=== PATIENT | female | born 1935 | race Caucasian/White ===

== ENCOUNTER → 2017-07-15 | Outpatient (POV) ==
[2015-03-18 09:36] VITALS: BMI 23.0
== END ==
LOC: OUTPT 00:01
PROVIDERS: ATTEND Otolaryngology
DX: H91.90 Unspecified hearing loss, unspecified ear (principal)
CPT/HCPCS: 92557

== ENCOUNTER 2019-07-12 14:11 | Outpatient (CLI) ==
[2015-03-18 09:36] VITALS: BMI 23.0
--- NOTE | 2019-07-13 08:57 | DI ---
EXAM: One-view pelvis HISTORY: Pain after fall COMPARISON: None. FINDINGS/IMPRESSION: Alignment: Anatomic. Bones: No displaced pelvic or evidence of proximal femoral fracture. Joint spaces: Preserved without significant degenerative change. Soft tissues: No acute abnormality. Atherosclerotic calcifications.
--- NOTE | 2019-07-13 09:10 | DI ---
EXAM: Two views of the sacrum/coccyx HISTORY: Pain after fall COMPARISON: None. FINDINGS/IMPRESSION: Alignment: Anatomic. Bones: No evidence of displaced pelvic or proximal femoral fracture. Bowel gas partially obscures th e sacrum. Joint spaces: Mild degenerative change of the SI joints and pubic symphysis. Mild degenerative palma e of the left hip.. Soft tissues: No acute abnormality. Atherosclerotic calcifications.. Moderate/advanced lower lumbar spondylosis. 3 mL retrolisthesis of L5 on S1.
== END 2019-07-12 14:12 | disposition home or self-care (01) ==
LOC: RAD 14:11
PROVIDERS: ATTEND Internal Medicine
DX: S39.92XA Unspecified injury of lower back, initial encounter (principal); W19.XXXA Unspecified fall, initial encounter

== ENCOUNTER 2020-05-01 10:38 | Inpatient (IN) ==
[2020-05-01] MEDS ORDERED: NITROSTAT SL PRN (10:58)
[2020-05-01] MEDS ORDERED: TYLENOL PO PRN (10:58)
[2020-05-01] MEDS ORDERED: ATROPINE SULFATE PFS IVP PRN (10:58)
[2020-05-01 11:25] VITALS: BMI 22.0
[2020-05-01 11:30] LABS: HEMATOCRIT 35.8 % (37.0-47.0)
[2020-05-01] MEDS: ATIVAN PO PRN ×2 (12:49→17:56)
[2020-05-01] MEDS: SODIUM CHLORIDE 1,000 ML IV SCH (14:23)
--- NOTE | 2020-05-01 15:29 | CT ---
EXAM:CT head with and without contrast HISTORY: Change in mental status COMPARISON: CT head 01/19/2020 with multiple priors including MRI 03/05/2011 TECHNIQUE: Serial axial images of the brain were obtained from the skull base to the vertex with and without IV contrast. Contrast enhanced images were performed after 75 mL is of Omnipaque 300 IV con trast was administered. FINDINGS: The ventricles, cisterns and sulci demonstrate stable generalized volume loss. There is s cattered low attenuation throughout the periventricular white matter.The khan-white matter junction i s maintained. No midline shift or mass is identified. There is no intra or extra axial fluid collec tion. The paranasal sinuses and mastoid air cells are clear. The Osseous calvarium is intact. Ther e is no contrast enhancing lesion. IMPRESSION: No intracranial abnormality or contrast enhancing lesion. Moderate generalized volume loss and microangiopathy.
--- NOTE | 2020-05-01 15:41 | CT ---
EXAM: CT chest without and with IV contrast HISTORY: Cough COMPARISON: None TECHNIQUE: Multiple axial images of the chest were obtained without and with IV contrast. Images wer e reformatted in the sagittal and coronal planes. FINDINGS: Heterogeneous thyroid gland with left greater than right hypodense nodules. Normal appearance of the thoracic inlet. Normal diameter thoracic aorta. Normal heart size. Trace pericardial effusion. Ao rtic and coronary atherosclerotic calcifications. No enlarged axillary lymph nodes. Enlarged 1.1 cm precarinal lymph node and 1.9 cm right hilar lymph nodes. Patent central airways. Large perihilar right upper/lower lobe perifissural mass measures 3.9 x 4.9 x 4.4 cm (AP by transverse by craniocauda l). Numerous bilateral pulmonary nodules measure up to 1.9 cm in the medial right middle lobe and ap proximately 0.9 cm in the left lower lobe base. No pneumothorax or pleural effusion. No acute findings within the visualized upper abdomen. No suspicious lytic/blastic lesion. No acute o sseous abnormality. IMPRESSION: 1. Large perihilar right upper/lower lobe mass consistent with malignancy. 2. Numerous bilateral pulmonary metastases. 3. Mediastinal and hilar adenopathy representing lymph node metastases. 4. Heterogeneous thyroid gland with left greater than right. Hypodense nodules.
--- NOTE | 2020-05-01 15:41 | CT ---
EXAM: CT abdomen with and without contrast. CT pelvis with and without contrast. HISTORY: Mental status change. Cough. Abdominal pain. COMPARISON: None available. TECHNIQUE: Multiple axial images of the abdomen and pelvis were obtained prior to and following intr avenous administration of 75 mL of Omnipaque 350, low osmolar. Images reformatted in the sagittal an d coronal plane. FINDINGS: Nodules in the lung bases. Note the largest measuring up to 1.9 cm in the right middle lo be on axial image 1 which is incompletely imaged. Refer to same day chest CT report for details. Sm all pericardial effusion noted. Degenerative changes present in the spine. Old appearing superior endplate compression deformity of L3 noted. No cecelia osseous lesion is identified. Leftward angulation of the coccyx may be due to ag e indeterminate injury. Gallbladder is absent. A 0.9 cm low density inferior posterior right hepatic lobe lesion on postcont rast coronal image 42 is present which measures fluid density. Smaller hepatic lesion on coronal ericka ge 53 is too small to characterize. The spleen and adrenal glands are normal. Suggestion of cystic lesion in the pancreatic tail measuring 1.4 x 0.9 x 1.3 cm on postcontrast axial image 21 and coronal image 28. Pancreas is otherwise normal. No peripancreatic inflammation identified. There is symmetric renal enhancement without hydronephrosis. There is no evidence for bowel obstruction. Diverticulosis noted. Appendix not seen. There are low density masses with rim enhancement in the left lateral abdominal mesentery measuring 1 .6 x 1 cm on postcontrast axial image 38 and along the lateral peritoneal surface measuring 1.3 x 1.1 cm on axial image 27. Tiny nodule in the right lateral mesentery measures 0.5 cm on postcontrast ax ial image 35. Uterus demonstrates normal contour. Bladder is normal. Phleboliths present in the pelvis. Atherosc lerotic calcifications present. No free fluid or free air identified IMPRESSION: 1. Rim enhancing low density masses within the peritoneum are suspicious for metastases. 2. Indeterminate low-density pancreatic tail mass. Consider MRI. 3. Small hepatic cyst. Smaller low density hepatic lesion is too small to characterize. 4. Pulmonary nodules are incompletely imaged. Refer to same day chest CT report for details. 5. Small pericardial effusion.
[2020-05-01] MEDS: PLETAL PO SCH (20:29)
[2020-05-01] MEDS: KEPPRA PO SCH (20:29)
[2020-05-01] MEDS: REMERON PO SCH (20:30)
[2020-05-01] MEDS: ZOCOR PO SCH (20:30)
[2020-05-01] MEDS: DIVALPROEX 250 MG PO SCH (20:30)
[2020-05-01] MEDS: RISPERDAL PO SCH (20:30)
[2020-05-01] MEDS: VISTARIL INJ IM PRN (21:04)
[2020-05-02 06:09] LABS: HEMATOCRIT 33.1 % (37.0-47.0)
[2020-05-02] MEDS ORDERED: HALDOL IM PRN (08:21)
[2020-05-02] MEDS: ASPIRIN EC PO SCH (08:59)
[2020-05-02] MEDS: KEPPRA PO SCH ×3 (08:59→21:12)
[2020-05-02] MEDS: PLETAL PO SCH ×3 (09:00→21:12)
[2020-05-02] MEDS: PLAVIX PO SCH (09:00)
[2020-05-02] MEDS: RISPERDAL PO SCH ×3 (09:00→21:13)
[2020-05-02] MEDS: BYSTOLIC PO SCH (09:00)
[2020-05-02] MEDS: DIVALPROEX 250 MG PO SCH ×3 (09:02→21:10)
[2020-05-02] MEDS: SODIUM CHLORIDE 1,000 ML IV SCH (09:31)
--- NOTE | 2020-05-02 09:38 | PCM.PROG ---
Attending Provider: ATTENDING PROVIDER: Dr. MICHEL ALVARADO This patient is seen with Tomasa Tavarez, Nurse Practitioner. DATE OF SERVICE: 05/02/20 SUBJECTIVE: This 84 year old /WHITE F was hospitalized 05/01/20. Resting comfortably. The patient had a very active night, was combative at times. She is normally pleasantly confused. The family is not present this a.m. to discuss test results. REVIEW OF SYSTEMS: CONSTITUTIONAL: Weakness. No night sweats. No fatigue, malaise, lethargy. No fever or chills. HEENT: Eyes: No visual changes. No eye pain. No eye discharge. ENT: No runny nose. No epistaxis. No sinus pain. No odynophagia. No congestion. RESPIRATORY: Cough. No congestion. No hemoptysis. No shortness of breath. CARDIOVASCULAR: No angina symptoms. No CHF symptoms. No atypical chest pain for CAD. No palpitations. No orthopnea.. GASTROINTESTINAL: No abdominal pain. No nausea or vomiting. No diarrhea or constipation. No hematemesis. No hematochezia. GENITOURINARY: No urgency. No frequency. No dysuria. No hematuria. No obstructive symptoms. No discharge. No pain. No significant abnormal bleeding. MUSCULOSKELETAL: No musculoskeletal pain; no joint swelling. NEUROLOGICAL: Confusion, oriented to person only. No headache. No neck pain. No syncope. No seizures. No dizziness. PSYCHIATRIC: Not anxious. No depression. No suicidal thoughts. No homicidal th oughts. SKIN: No rash. No lesions. No wounds. ENDOCRINE: No unexplained weight loss. No weight gain. HEMATOLOGIC/LYMPHATIC: No anemia. No purpura. No petechiae. No prolonged or excessive bleeding. No palpable lymph nodes. PHYSICAL EXAMINATION: GENERAL: The patient is oriented to person only, lying/sitting in bed in no distress. VITAL SIGNS: Temperature 98.7 F, Pulse 85, Respiratory Rate 18, BP 110/63, Pulse Ox 93% HEENT: Head normocephalic, atraumatic. Eyes: Extraocular muscles are intact. Pupils are equal, round and reactive to light and accommodation. Ears: No lesions. Nose appeared normal. Throat: No exudate or erythema. NECK: Supple. No JVD, no carotid bruit. No lymphadenopathy or thyromegaly. LUNGS: Diminished breath sounds. Clear to auscultation. Percussion note normal. Chest symmetrical. HEART: S1, S2, no S3. No murmurs. No cyanosis or clubbing. No ascites. Pulses: Dorsalis pedis and posterior tibial pulses +1 to +2 both sides. ABDOMEN: Soft. Non-tender. Bowel sounds active. No CVA tenderness. No mass felt. EXTREMITIES: No edema. Full range of motion of all extremities, equal. NEUROLOGIC: No focal deficit. Cranial nerves II through XII are grossly intact. No headache, no double vision or headache. SKIN: Not dry. Intact. Turgor-normal. LYMPHATIC: No palpable lymph nodes/no lymphedema. MUSCULOSKELETAL: Generalized weakness. Normal joints with no swelling. Muscle tone is normal. LAB REVIEW: 05/02/20 06:02 05/02/20 06:02 05/02/20 06:02: Sodium 133.8 L, Potassium 3.61, Chloride 100.7, Carbon Dioxide 2 7.8, Anion Gap 8.91, BUN 7.2, Creatinine 0.48 L, Estimated GFR (MDRD) 123.00, BUN/Creatinine Ratio 15.00, Glucose 106.7 H, Calcium 9.12, Total Bilirubin 0.48, AST 31.0, ALT 15.0, Alkaline Phosphatase 101.5, Total Protein 6.23 L, Albumin 3.38 L, Globulin 2.85, Albumin/Globulin Ratio 1.18 05/02/20 06:02: WBC 7.39, RBC 3.83 L, Hgb 11.1 L, Hct 33.1 L, MCV 86.4, MCH 29.0, MCHC 33.5, RDW Coeff of Cheryl 13.2, Plt Count 225, Immature Gran % (Auto) 0.5, Neut % (Auto) 74.4, Lymph % (Auto) 11.2, [place] % (Auto) 13.3 H, Eos % (Auto) 0.3, Baso % (Auto) 0.3, Neut # (Auto) 5.5, Lymph # (Auto) 0.8, [place] # (Auto) 1.0, Eos # (Auto) 0.0, Baso # (Auto) 0.0, Immature Gran # (Auto) 0.0 05/01/20 11:48: Urine Color Yellow, Urine Clarity Clear, Urine pH 7.0, Ur Specific Hammond 1.015, Urine Protein Negative, Urine Glucose (UA) Negative, Urine Ketones Negative, Urine Blood Negative, Urine Nitrite Negative, Urine Bilirubin Negative, Urine Urobilinogen 0.2, Ur Leukocyte Esterase Negative 05/01/20 11:25: Valproic Acid 27.16 L 05/01/20 11:25: Vitamin B12 984 H 05/01/20 11:25: Sodium 135.5, Potassium 3.91, Chloride 101.9, Carbon Dioxide 27.3, Anion Gap 10.21, BUN 7.3, Creatinine 0.49 L, Estimated GFR (MDRD) 120.00, BUN/Creatinine Ratio 14.89, Glucose 105.1, Calcium 9.22, Total Bilirubin 0.39, AST 37.1 H, ALT 14.5, Alkaline Phosphatase 109.3, Total Protein 6.67, Albumin 3.66, Globulin 3.01, Albumin/Globulin Ratio 1.21 05/01/20 11:25: WBC 7.34, RBC 4.10 L, Hgb 11.9 L, Hct 35.8 L, MCV 87.3, MCH 29.0, MCHC 33.2, RDW Coeff of Cheryl 13.2, Plt Count 237, Immature Gran % (Auto) 0.7, Neut % (Auto) 73.8, Lymph % (Auto) 14.3, [place] % (Auto) 10.4 H, Eos % (Auto) 0.5, Baso % (Auto) 0.3, Neut # (Auto) 5.4, Lymph # (Auto) 1.1, [place] # (Auto) 0.8, Eos # (Auto) 0.0, Baso # (Auto) 0.0, Immature Gran # (Auto) 0.1 ASSESSMENT: Please see below. 1. Generalized weakness. 2. Dementia with behavioral disturbances. 3. 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 PLAN: 1. I will discuss with family when they are present, our plan of action. Considering her advanced age and advanced dementia, her prognosis is poor. These were incidental findings, she has had no signs or symptoms. 2. Haldol 0.5 mg IM q.h.s. p.r.n. 3. Close monitoring. 4. Fall precautions. Plan and coordination of the patient's care discussed in the presence of Type Rolling Machine Operator and nurse. CONDITION: Stable SCRIBED BY: CIERA WARNER Palletizer scribed while in presence of service performed by Dr. Alvarado/Tomasa Tavarez APRN on 05/02/20 ([id number])
--- NOTE | 2020-05-02 11:23 | HP ---
DATE OF SERVICE: 05/01/20 HISTORY OF PRESENT ILLNESS: 84-year-old White/ female with complaint of feeling more tired and weak, not eating as much. She has lost weight. She is coughing. She has had diarrhea off and on. PAST MEDICAL HISTORY: Dementia - memory loss Chronic cough CAD with stent COPD PAD Hypertension Dyslipidemia History of UTI's Hyperglycemia Osteoarthritis PAST SURGICAL HISTORY: Stent Gallbladder Bladder REVIEW OF SYSTEMS: CONSTITUTIONAL: Fatigue. No fever. HEENT: No sinus drainage, no sore throat. RESPIRATORY: Cough. CARDIOVASCULAR: No atypical chest pain for coronary artery disease. No angina, CHF symptoms, palpitations or shortness of breath. GASTROINTESTINAL: Diarrhea 3-4 times a day. No melena or abdominal pain. No GERD. GENITOURINARY: No hematuria, no polyuria. DIRECTOR PROCESS ENGINEERING: Unsteady gait. No blackout, no dizziness, no headache, no double vision. MUSCULOSKELETAL: Osteoarthritis pain. ENDOCRINE: No weight loss, no weight gain. SKIN: Not dry, no rash. PSYCHIATRIC: Not anxious, no depression, no suicidal thoughts, no homicidal thoughts. SOCIAL HISTORY: Nonsmoker. . She has six children. No alcohol use. FAMILY HISTORY: Father . Mother . One brother. No sisters. MEDICATIONS: Bystolic 5 mg one daily Keppra 750 mg two a.m., two h.s. Seroquel 50 mg one at h.s. Plavix 75 mg one daily Cilostazol 100 mg one b.i.d. Simvastatin 40 mg one daily Ativan 1 mg 1-1.5 daily Memantine ER 7 mg 2 daily (Dr. Sherman) Cilostazol 100 mg one tab p.o. b.i.d. Imodium b.i.d. Tylenol b.i.d. Vitamin D 50,000 units one weekly Remeron 7.5 mg one h.s. Risperidone 1 mg one b.i.d. Depakote 125 mg two b.i.d. Melatonin 3 mg one h.s. ALLERGIES: NKDA PHYSICAL EXAMINATION: V/S: Pulse 76, BP 118/68, Temperature 97.7, 02 sat 98%. Weight 118 pounds, 4 ozs, Height 5'3". BMI 20.9. GENERAL APPEARANCE: Oriented to person only; confused. HEENT: Normal. NECK: No JVP, no bruits. RESPIRATORY: Lungs are clear. Decreased breath sounds. CARDIOVASCULAR: S1, S2, no S3, no murmur. Positive for clubbing. No cyanosis. No ascites. GI/ABDOMEN: No tenderness. Bowel sounds are active. EXTREMITIES: No edema, pulses +1, equal. DIRECTOR PROCESS ENGINEERING: Deep tendon reflexes, sensory, motor and gait all normal. RECTAL/PELVIC: Colonoscopy - Dr. Callahan 01/15. Pelvic: Advised yearly. Refused mammogram. LAB REVIEW: B12 [id number], Valproic Acid 27.16, UA normal. Sodium 135, potassium 3.9, BUN 7.3, creatinine 0.4. White count 7.3, hemoglobin 11.9, hematocrit 35.8, platelets 237. ASSESSMENT: 1. Change in mental status. 2. Generalized weakness. 3. Dementia with behavioral disturbances. 4. Chronic cough. 5. Memory loss (Dr. Sherman). 6. Seizure disorder (Dr. Sherman). 7. CAD with stent. 8. Hypertension. 9. Dyslipidemia. 10. History of UTI. 11. Status post fall- recurrent. 12. Hyperglycemia. 13. Left cervical radiculopathy. 14. Osteoarthritis. 15. Peripheral arterial disease, Dr. Umaña. 16. COPD - appointment 06/06/20. PLAN: 1. Routine telemetry orders - no cardiac markers. 2. CBC, CMP now and daily. 3. U/A with culture. 4. CT scan of brain, chest, abdomen and pelvis with and without contrast. 5. Regular diet. 6. Continue home medications. 7. Keppra level. 8. Depakote level. 9. B12 level. 10. NS @ 50 cc/hr IV. 11. Fall precautions - high risk. Close to nurse's desk. 12. Ativan 0.5 mg b.i.d. p.r.n. p.o. TIME SPENT: More than 70 minutes. MTDD
--- NOTE | 2020-05-02 14:06 | PN ---
DATE OF SERVICE: 05/01/20 SUBJECTIVE: The patient was seen and examined with the nurse practitioner in the office. The patient is going to be hospitalized with dementia and planning overall health status with possibility of dehydration. Also has a lot of nonspecific complaints like chest pain, PND type of feelings the patient has. The daughter is in the room. I will admit the patient and work her up with routine tests. TIME SPENT: More than 30 minutes. Plan and coordination of the patient's care discussed in the presence of nurse. LISA
--- NOTE | 2020-05-02 14:12 | PN ---
DATE OF SERVICE: 05/02/20 SUBJECTIVE: The patient was seen and examined with the nurse practitioner. The patient has the possibility of metastatic lung cancer, lesion in the pancreas is noted. The patient has Alzheimer's with dementia. She is up and about but confused. I talked with the family about future plan. TIME SPENT: More than 30 minutes. Plan and coordination of the patient's care discussed in the presence of nurse. LISA
[2020-05-02] MEDS: ZOCOR PO SCH ×2 (19:30→21:14)
[2020-05-02] MEDS: REMERON PO SCH ×2 (19:31→21:13)
[2020-05-02] MEDS: ATIVAN PO PRN (19:32)
[2020-05-03 05:37] LABS: HEMATOCRIT 31.6 % (37.0-47.0)
[2020-05-03] MEDS: RISPERDAL PO SCH ×3 (08:30→20:07)
[2020-05-03] MEDS: PLAVIX PO SCH (08:31)
[2020-05-03] MEDS: DIVALPROEX 250 MG PO SCH ×3 (08:31→20:05)
[2020-05-03] MEDS: ASPIRIN EC PO SCH (08:31)
[2020-05-03] MEDS: HALDOL PO SCH ×3 (08:31→20:05)
[2020-05-03] MEDS: PLETAL PO SCH ×3 (08:31→20:06)
[2020-05-03] MEDS: KEPPRA PO SCH ×3 (08:31→20:05)
[2020-05-03] MEDS: BYSTOLIC PO SCH (08:31)
--- NOTE | 2020-05-03 09:09 | PN ---
DATE OF SERVICE: 05/03/20 SUBJECTIVE: The patient was seen and examined this morning with nurse practitioner. The patient's condition is stable. She has old metastatic lesion and possibility of malignancy. The family wants her to be off Ativan. Will do that and put her on Haldol which has worked p.o. 0.5 twice a day. Condition is otherwise stable. TIME SPENT: More than 30 minutes. Plan and coordination of the patient's care discussed in the presence of nurse. LISA
--- NOTE | 2020-05-03 11:54 | PN ---
DATE OF SERVICE: 05/03/20 SUBJECTIVE: 84-year-old female who was hospitalized 05/01/20. She is currently resting comfortably in bed. She again had a very active night and was combative at times. Haldol was given which the patient tolerated very well and was able to rest. She is normally pleasantly confused. There is no family present in the room this morning however previous test results with concern for cancer with metastasis was discussed in great detail yesterday with the family. The daughter Kim is concerned that Ativan is contributing to Ms. Alonzo's confusion therefore we will stop Ativan today. The nursing staff reports that the telemetry also makes the patient very agitated therefore we will discontinue her telemetry today. We will begin Haldol 0.5 p.o. b.i.d. The family is currently trying to decide whether they will take the patient back home or if they would prefer her to try [facility] placement. We will continue to monitor the patient closely due to confusion and increased fall risk. REVIEW OF SYSTEMS: CONSTITUTIONAL: Weakness. No night sweats. No fatigue, malaise, lethargy. No fever or chills. HEENT: Eyes: No visual changes. No eye pain. No eye discharge. ENT: No runny nose. No epistaxis. No sinus pain. No sore throat. No odynophagia. No congestion. RESPIRATORY: No cough, no congestion. No hemoptysis. No shortness of breath. CARDIOVASCULAR: No angina symptoms. No CHF symptoms. No atypical chest pain for CAD. No palpitations. No PND. No orthopnea. GASTROINTESTINAL: No abdominal pain. No nausea or vomiting. No diarrhea or constipation. No hematemesis. No hematochezia. GENITOURINARY: No urgency. No frequency. No dysuria. No hematuria. No obstructive symptoms. No discharge. No pain. No significant abnormal bleeding. MUSCULOSKELETAL: No musculoskeletal pain; no joint swelling. NEUROLOGICAL: Confusion. Oriented to person only. No headache. No neck pain. No syncope. No seizures. No dizziness. PSYCHIATRIC: Not anxious. No depression. No suicidal thoughts. No homicidal thoughts. SKIN: No rash. No lesions. No wounds. ENDOCRINE: No unexplained weight loss. No weight gain. HEMATOLOGIC/LYMPHATIC: No anemia. No purpura. No petechiae. No prolonged or excessive bleeding. No palpable lymph nodes. PHYSICAL EXAMINATION: GENERAL: The patient is oriented to person only. VITAL SIGNS: Temperature 98.4, pulse 74, BP 134/74, respiratory rate 16, 02 saturation 96% on room air. HEENT: Head normocephalic, atraumatic. Eyes: Extraocular muscles are intact. Pupils are equal, round and reactive to light and accommodation. Ears: No lesions. Nose appeared normal. Throat: No exudate or erythema. NECK: Supple. No JVD, no carotid bruit. No lymphadenopathy or thyromegaly. LUNGS: Diminished breath sounds. Clear to auscultation. Percussion note normal. Chest symmetrical. HEART: S1, S2, no S3. No murmurs. No cyanosis or clubbing. No ascites. Pulses: Dorsalis pedis and posterior tibial pulses +1 to +2 bilaterally. ABDOMEN: Soft. Nontender. Bowel sounds active. No CVA tenderness. No mass felt. EXTREMITIES: No edema. Full range of motion of all extremities, equal. NEUROLOGIC: No focal deficit. Cranial nerves II through XII are grossly intact. No headache, no double vision or headache. SKIN: Not dry. Intact. Turgor - normal. LYMPHATIC: No palpable lymph nodes/no lymphedema. MUSCULOSKELETAL: Normal joints with no swelling. Muscle tone is normal. ASSESSMENT: 1. Generalized weakness. 2. Dementia with behavioral disturbances. 3. 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 PLAN: 1. Test results were discussed with family in great depth. The family is considering different plans of action. Considering her advanced age and advanced dementia, her prognosis is poor. 2. Stop Ativan. 3. Haldol 0.5 mg p.o. b.i.d. 4. Okay to d/c telemetry. 5. Stop fluids as the patient has had good oral intake. TIME SPENT: More than 30 minutes. Plan and coordination of the patient's care discussed in the presence of nurse. LISA
[2020-05-03] MEDS: VISTARIL INJ IM PRN (18:00)
[2020-05-03] MEDS: ZOCOR PO SCH ×2 (19:43→20:08)
[2020-05-03] MEDS: REMERON PO SCH ×2 (19:44→20:07)
[2020-05-04 06:19] VITALS: BP 105/64; TEMP 97.8
[2020-05-04] MEDS: BYSTOLIC PO SCH (08:16)
[2020-05-04] MEDS: ASPIRIN EC PO SCH (08:16)
[2020-05-04] MEDS: DIVALPROEX 250 MG PO SCH (08:17)
[2020-05-04] MEDS: PLETAL PO SCH (08:17)
[2020-05-04] MEDS: RISPERDAL PO SCH (08:17)
[2020-05-04] MEDS: PLAVIX PO SCH (08:17)
[2020-05-04] MEDS: HALDOL PO SCH (08:17)
[2020-05-04] MEDS: KEPPRA PO SCH (08:17)
--- NOTE | 2020-05-04 08:30 | PCM.PROG ---
Attending Provider: ATTENDING PROVIDER: Dr. MICHEL NORTON This patient is seen with Tomasa Tavarez, Nurse Practitioner. DATE OF SERVICE: 05/04/20 SUBJECTIVE: This 84 year old /WHITE F was hospitalized 05/01/20. The patient is resting comfortably. Oral Haldol has helped behavior. Stable for discharge today. The family is unsure of plan whether she will go to custodial or back home. They have an appointment with Dr. Thomas on 05/09. REVIEW OF SYSTEMS: CONSTITUTIONAL: Confusion. Weakness. No night sweats. No fatigue, malaise, lethargy. No fever or chills. HEENT: Eyes: No visual changes. No eye pain. No eye discharge. ENT: No runny nose. No epistaxis. No sinus pain. No odynophagia. No congestion. RESPIRATORY: Cough, no congestion. No hemoptysis. No shortness of breath. CARDIOVASCULAR: No angina symptoms. No CHF symptoms. No atypical chest pain for CAD. No palpitations. No orthopnea.. GASTROINTESTINAL: No abdominal pain. No nausea or vomiting. No diarrhea or constipation. No hematemesis. No hematochezia. GENITOURINARY: No urgency. No frequency. No dysuria. No hematuria. No obstructive symptoms. No discharge. No pain. No significant abnormal bleeding. MUSCULOSKELETAL: No musculoskeletal pain; no joint swelling. NEUROLOGICAL: Awake, confused. No headache. No neck pain. No syncope. No seizures. No dizziness. PSYCHIATRIC: Not anxious. No depression. No suicidal thoughts. No homicidal thoughts. SKIN: No rash. No lesions. No wounds. ENDOCRINE: No unexplained weight loss. No weight gain. HEMATOLOGIC/LYMPHATIC: No anemia. No purpura. No petechiae. No prolonged or excessive bleeding. No palpable lymph nodes. PHYSICAL EXAMINATION: GENERAL: The patient is awake, confused, lying/sitting in bed in no distress. VITAL SIGNS: Temperature 97.8 F, Pulse 74, Respiratory Rate 16, BP 105/64, Pulse Ox 95% HEENT: Head normocephalic, atraumatic. Eyes: Extraocular muscles are intact. Pupils are equal, round and reactive to light and accommodation. Ears: No lesions. Nose appeared normal. Throat: No exudate or erythema. NECK: Supple. No JVD, no carotid bruit. No lymphadenopathy or thyromegaly. LUNGS: Diminished breath sounds. Clear to auscultation. Percussion note normal. Chest symmetrical. HEART: S1, S2, no S3. No murmurs. No cyanosis or clubbing. No ascites. Pulses: Dorsalis pedis and posterior tibial pulses +1 to +2 both sides. ABDOMEN: Soft. Non-tender. Bowel sounds active. No CVA tenderness. No mass felt. EXTREMITIES: No edema. Full range of motion of all extremities, equal. NEUROLOGIC: No focal deficit. Cranial nerves II through XII are grossly intact. No headache, no double vision or headache. SKIN: Not dry. Intact. Turgor-normal. LYMPHATIC: No palpable lymph nodes/no lymphedema. MUSCULOSKELETAL: Normal joints with no swelling. Muscle tone is normal. LAB REVIEW: 05/04/20 05:30 05/04/20 05:30 05/04/20 05:30: Sodium 133.8 L, Potassium 3.62, Chloride 100.7, Carbon Dioxide 27.5, Anion Gap 9.22, BUN 10.3, Creatinine 0.50 L, Estimated GFR (MDRD) 118.00, BUN/Creatinine Ratio 20.60, Glucose 112.6 H, Calcium 8.85, Total Bilirubin 0.38, AST 33.5, ALT 15.9, Alkaline Phosphatase 95.2, Total Protein 5.81 L, Albumin 3.15 L, Globulin 2.66, Albumin/Globulin Ratio 1.18 05/04/20 05:30: WBC 7.74, RBC 3.70 L, Hgb 10.6 L, Hct 32.0 L, MCV 86.5, MCH 28.6, MCHC 33.1, RDW Coeff of Cheryl 13.4, Plt Count 231, Immature Gran % (Auto) 0.5, Neut % (Auto) 72.2, Lymph % (Auto) 12.8, [place] % (Auto) 13.4 H, Eos % (Auto) 0.8, Baso % (Auto) 0.3, Neut # (Auto) 5.6, Lymph # (Auto) 1.0, [place] # (Auto) 1.0, Eos # (Auto) 0.1, Baso # (Auto) 0.0, Immature Gran # (Auto) 0.0 05/01/20 11:25: Levetiracetam 64.0 H ASSESSMENT: Please see below. 1. Generalized weakness. 2. Dementia with behavioral disturbances. 3. 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 PLAN: 1. Anticipate discharge, will discuss with family to discharge home or custodial. 2. Appointment with Dr. Thomas on 05/09/20. 3. At this point her prognosis is poor given her age and newly diagnosed lung lesions. She would most likely benefit from palliatve care. Plan and coordination of the patient's care discussed in the presence of Tar Chaser and nurse. CONDITION: stable SCRIBED BY: CIERA WARNER [employer] scribed while in presence of service performed by Dr. Norton/Tomasa Tavarez APRN on 05/04/20 ([id number])
[2020-05-04] MEDS: SODIUM CHLORIDE 1,000 ML IV SCH (10:37)
--- NOTE | 2020-05-04 10:53 | CM.DICTOOL ---
ADMISSION: 05/01/20 10:38 DISCHARGE: MAY 04, 2020 DATE OF SERVICE: 05/04/20 FINAL DIAGNOSIS: GENERALIZED WEAKNESS DEMENTIA WITH BEHAVIORAL DISTURBANCES RT LUNG MASS PER CT CONSISTENT WITH MALIGNANCY WITH BILATERAL METASTASIS ALONG LYMPH NODE AND PANCREATIC METASTASIS HX: DEMENTIA WITH BEHAVIORAL DISTURBANCES CHRONIC COUGH MEMORY LOSS SEIZURE DISORDER CAD WITH STENT HTN DYSLIPIDEMIA UTI FALLS - REOCCURANT HYPERGLYCEMIA L CERVICAL RADICULOPATHY OA PAD COPD- DR NINO F/U 06/06/2020 LAST VITALS Temp Pulse Resp BP Pulse Ox 97.8 F 74 19 105/64 95 05/04/20 06:00 05/04/20 06:00 05/04/20 08:00 05/04/20 06:00 05/04/20 06:00 TAKE THESE MEDICATIONS AT HOME Cilostazol (Pletal) 100 mg PO BID [facility] Last Admin: 05/04/20 08:17 Dose: 100 mg Documented by: Clopidogrel Bisulfate (Plavix) 75 mg PO DAILY [facility] Last Admin: 05/04/20 08:17 Dose: 75 mg Documented by: Ergocalciferol (Drisdol) 50,000 unit PO WEEKLY [facility] Haloperidol (Haldol) 0.5 mg PO BID [facility] -------- ( NEW) Last Admin: 05/04/20 08:17 Dose: 0.5 mg Documented by: Levetiracetam (Keppra) 1,500 mg PO BID [facility] Last Admin: 05/04/20 08:17 Dose: 1,500 mg Documented by: Mirtazapine (Remeron) 7.5 mg PO BEDTIME [facility] Last Admin: 05/03/20 20:07 Dose: Not Given Documented by: Nebivolol (Bystolic) 5 mg PO DAILY [facility] Last Admin: 05/04/20 08:16 Dose: 5 mg Documented by: Non-Formulary Medication (Divalproex [Depakote Sprinkles]) 250 mg PO Q12HR [facility] Last Admin: 05/04/20 08:17 Dose: 250 mg Documented by: Non-Formulary Medication (Melatonin) 3 mg PO BEDTIME [facility] Last Admin: 05/03/20 20:06 Dose: Not Given Documented by: Risperidone (Risperdal) 1 mg PO BID [facility] Last Admin: 05/04/20 08:17 Dose: 1 mg Documented by: Simvastatin (Zocor) 40 mg PO BEDTIME [facility] Last Admin: 05/03/20 20:08 Dose: Not Given Documented by: ALLERGIES No Known Allergies Allergy (Verified 01/19/20 19:27) DISCONTINUED MEDICATIONS NONE NEW PRESCRIPTIONS: HALDOL 0.5 MG PO BID SMOKING: NON- APPLICABLE DISEASE SPECIFIC EDUCATION: DEMENTIA WITH DISTURBANCES SEIZURES COVID LAB REVIEW: 05/04/20 05:30 05/04/20 05:30 05/04/20 05:30: Sodium 133.8 L, Potassium 3.62, Chloride 100.7, Carbon Dioxide 27.5, Anion Gap 9.22, BUN 10.3, Creatinine 0.50 L, Estimated GFR (MDRD) 118.00, BUN/Creatinine Ratio 20.60, Glucose 112.6 H, Calcium 8.85, Total Bilirubin 0.38, AST 33.5, ALT 15.9, Alkaline Phosphatase 95.2, Total Protein 5.81 L, Albumin 3.15 L, Globulin 2.66, Albumin/Globulin Ratio 1.18 05/04/20 05:30: WBC 7.74, RBC 3.70 L, Hgb 10.6 L, Hct 32.0 L, MCV 86.5, MCH 28.6, MCHC 33.1, RDW Coeff of Cheryl 13.4, Plt Count 231, Immature Gran % (Auto) 0.5, Neut % (Auto) 72.2, Lymph % (Auto) 12.8, [place] % (Auto) 13.4 H, Eos % (Auto) 0.8, Baso % (Auto) 0.3, Neut # (Auto) 5.6, Lymph # (Auto) 1.0, [place] # (Auto) 1.0, Eos # (Auto) 0.1, Baso # (Auto) 0.0, Immature Gran # (Auto) 0.0 05/01/20 11:25: Levetiracetam 64.0 H PLAN: DISCHARGE TO [facility] TODAY, May ACTIVITY : UP TOLERATED WITH ASSIST 24 HOURS SUPERVISION, ELOPEMENT RISK, FALL RISK PT AND OT EVAL AND TREAT DIET: REGULAR MD FOLLOW UP: DR ALVARADO/CLYDE ROJAS APRN/DIVINA DOYLE APRN WILL SEE ON ROUNDS DR NINO, [facility], [address] [place] [address] ON SATURDAY MAY 09, 2020 @ 115 PM ( IS NOT AT [facility] LABS TO BE TAKEN TO [facility]: CBC AND CMP ON Friday05/08/2020 THEN EVERY 3 MONTHS LIPIDS, TSH, FREE T4 AND A1C EVERY 6 MONTHS CODE STATUS: DO NOT RESUSCITATE MRS GROVES IS ALERT AND ORIENTED TO SELF ONLY. REQUIRES 24 HOUR SUPERVISION DUE TO CONFUSION. IS UP AND AMBULATING WITH ASSISTANCE.GAIT IS FAIR AND LENDS FORWARD, UNABLE TO COMPREHEND USE OF A ASSISTIVE DEVICE. NO FURTHER COMBATIVE EPISODES. GETS AGITATED WITH THINGS LIKE TELEMETRY AND IVS SO HAD TO DISCONTINUE. FEDS SELF WITH SET UP, CUES AT TIMES. SHE VERBALIZES DIFFICULTY USING HER RT HAND SHE IS EATING. NUTRITIONAL INTAKE FAIR - GOOD AND FLUID INTAKE GOOD. SKIN WARM AND DRY AND INTACT. WEARS DEPENDS DUE TO DRIBBLING, HOWEVER, GETS UP TO BATHROOM. CONTINENT OF BOWELS WITH LAST BOWEL MOVEMENT 05/03/2020. DISCHARGING TO [facility] PER FAMILIES DESIRES, MAY TRY TO TAKE HOME LATER. FAMILY VERBALIZES THE RESTRICTIONS AT THIS TIME RELATED TO COVID - 19 AT [facility]. MD DIVINA MONTANA APRN ALYCE HANNAN, APRN
--- NOTE | 2020-05-04 11:35 | PN ---
DATE OF SERVICE: 05/04/20 SUBJECTIVE: The patient was seen and examined with the nurse practitioner. The patient's condition is stable. Her appointment with pulmonary physician is moved up. She has metastatic lesions in the chest and possibly pancreatic mass. The patient will undergo CT scan of the abdomen and will get further evaluation. Still the family wants her to be seen by pulmonary MNolberto. otherwise the patient's status is stable. She is up and about has practically no pain. The [facility]. The patient is not having any pain. She is up and about. The patient should be left alone but the family wants her to be evaluated. She is DNR. PROGNOSIS: Poor. TIME SPENT: More than 30 minutes. Plan and coordination of the patient's care discussed in the presence of nurse. LISA
--- NOTE | 2020-05-04 11:37 | PN ---
BILLING 05/01/20 ADMISSION DAY LEVEL 5 05/02/20 INTERMEDIATE 05/03/20 INTERMEDIATE 05/04/20 DISCHARGE MTDD
--- NOTE | 2020-05-04 13:57 | DS ---
DATE OF SERVICE: 05/04/20 FINAL DIAGNOSIS: 1. GENERALIZED WEAKNESS 2. DEMENTIA WITH BEHAVIORAL DISTURBANCES 3. RT LUNG MASS PER CT CONSISTENT WITH MALIGNANCY WITH BILATERAL METASTASIS ALONG LYMPH NODE AND PANCREATIC METASTASIS HX: 4. DEMENTIA WITH BEHAVIORAL DISTURBANCES 5. CHRONIC COUGH 6. MEMORY LOSS 7. SEIZURE DISORDER 8. CAD WITH STENT 9. HTN 10. DYSLIPIDEMIA 11. UTI 12. FALLS - REOCCURANT 13. HYPERGLYCEMIA 14. L CERVICAL RADICULOPATHY 15. OA 16. PAD 17. COPD- DR NINO F/U 06/06/2020 LAST VITALS Temp Pulse Resp BP Pulse Ox 97.8 F 74 19 105/64 95 05/04/20 06:00 05/04/20 06:00 05/04/20 08:00 05/04/20 06:00 05/04/20 06:00 DISCHARGE INSTRUCTIONS: 1. DISCHARGE TO [facility] TODAY, May 2. MD FOLLOW UP: DR ALVARADO/CLYDE ROJAS APRN/DIVINA DOYLE APRN WILL SEE ON ROUNDS 3. DR NINO, [facility], [address] [place] [address] ON SATURDAY MAY 09, 2020 @ 115 PM (IS NOT AT [facility]) 4. LABS TO BE TAKEN TO [facility]: CBC AND CMP ON Friday05/08/2020 THEN EVERY 3 MONTHS, LIPIDS, TSH, FREE T4 AND A1C EVERY 6 MONTHS 5. CODE STATUS: DO NOT RESUSCITATE MEDICATIONS AT DISCHARGE: Cilostazol (Pletal) 100 mg PO BID [facility] Last Admin: 05/04/20 08:17 Dose: 100 mg Documented by: Clopidogrel Bisulfate (Plavix) 75 mg PO DAILY [facility] Last Admin: 05/04/20 08:17 Dose: 75 mg Documented by: Ergocalciferol (Drisdol) 50,000 unit PO WEEKLY [facility] Haloperidol (Haldol) 0.5 mg PO BID [facility] -------- ( NEW) Last Admin: 05/04/20 08:17 Dose: 0.5 mg Documented by: Levetiracetam (Keppra) 1,500 mg PO BID [facility] Last Admin: 05/04/20 08:17 Dose: 1,500 mg Documented by: Mirtazapine (Remeron) 7.5 mg PO BEDTIME [facility] Last Admin: 05/03/20 20:07 Dose: Not Given Documented by: Nebivolol (Bystolic) 5 mg PO DAILY [facility] Last Admin: 05/04/20 08:16 Dose: 5 mg Documented by: Non-Formulary Medication (Divalproex ) 250 mg PO Q12HR [facility] Last Admin: 05/04/20 08:17 Dose: 250 mg Documented by: Non-Formulary Medication (Melatonin) 3 mg PO BEDTIME [facility] Last Admin: 05/03/20 20:06 Dose: Not Given Documented by: Risperidone (Risperdal) 1 mg PO BID [facility] Last Admin: 05/04/20 08:17 Dose: 1 mg Documented by: Simvastatin (Zocor) 40 mg PO BEDTIME [facility] Last Admin: 05/03/20 20:08 Dose: Not Given Documented by: NEW PRESCRIPTIONS: HALDOL 0.5 MG PO BID DISCONTINUED MEDICATIONS: NONE DIET INSTRUCTIONS: REGULAR ACTIVITY: UP TOLERATED WITH ASSIST - 24 HOURS SUPERVISION, ELOPEMENT RISK, FALL RISK PT AND OT EVAL AND TREAT SMOKING: NONAPPLICABLE DISEASE SPECIFIC EDUCATION: DEMENTIA WITH DISTURBANCES SEIZURES COVID HOSPITAL COURSE: This is an 84-year-old white female, who was a direct admit from our office. She had had change in mental status and generalized weakness and generalized decline. Her family has been taking care of her at home. She does have severely advanced dementia with behavioral disturbances. She was admitted. CT of the head was done for the change in mental status which was normal. The family stated that she had had persistent cough for the past few months that is nonproductive so we did a CT of the chest which then showed that she had a large pulmonary mass in the right upper lobe consistent with malignancy with numerous bilateral pulmonary metatasis. We then also did a CT of the abdomen which showed that she had some mediastinal lymph node metastasis and possible lesion on the pancreas. Kidney function was slightly elevated. We did IV fluids at 75 cc/hr of NS. UA was normal. She did exhibit some behavioral disturbances. We initially tried to do Ativan which seemed to make the situation worse. We then tried 0.5 mg of Haldol IM which helped. We then started her on 0.5 mg of Haldol p.o. twice daily. Since then she has been less anxious, not combative, has not been aggressive in any way. The Haldol seems to be working well. When she was admitted she was also on Depakote as well as Risperdal to help with her behaviors which Dr. Sherman had done. She also has a history of a seizure disorder for which she was already on Keppra. Her vital signs have been stable. Again, she is doing well since there are no acute changes with her brain. I do think that her generalized decline in mental status is due to the advancement of her dementia. We discussed with the family at length regarding her prognosis given the large pulmonary lesion with metastasis and her advanced age as well as her advanced dementia. She does have an appointment with the pulmonary doctor, Dr. Nino, on 05/09. However, at this point, it is our recommendation that they leave her as is as the risk and detriment to both her mental and physical health may outweigh the benefit as far as doing any sort of treatment for the lung cancer. She is going to be discharged to [facility]. I do expect that she will have some behavioral disturbances there given another change of environment. She will be discharged there today in stable condition. We will continue her medications as they are today. Labs are stable. Hemoglobin 10.6, hematocrit 32, platelets 231, kidney function is good. Creatinine 0.5, BUN 10.3. We will discharge her in stable condition. We will follow up with her at the [facility]. Again, she does have an appointment with Dr. Nino on 05/09; however, we do feel that there is not much that can be done at this point. The family is all in agreement and demonstrates understanding. TIME SPENT: More than 60 minutes. LISA
[2020-05-08] MEDS ORDERED: DRISDOL PO SCH (09:00)
== END 2020-05-04 13:08 | DRG 948 ==
LOC: MEDSURG B 10:38
PROVIDERS: ADMIT Internal Medicine; ATTEND Internal Medicine